=== PATIENT | male | born 1935 | race Two or more races ===

== ENCOUNTER 2018-10-02 16:26 | Emergency (ER) | payer OTHER ==
[~2018-10-02] VITALS: Ht 167.6 cm; Wt 90.7 kg
[2018-10-02 18:27] LABS: Basophils # (auto) 0 uL; Basophils % (auto) 0.4 % (0.0-2.0); Eosinophils # (auto) 0.1 uL; Eosinophils % (auto) 0.7 % (0.0-7.0); Lymphocytes # (auto) 0.7 uL; Lymphocytes % (auto) 5.7 % (10.0-50.0); Mean Corpuscular Hemoglobin 28.8 pg (28.0-32.0); Mean Corpuscular Hgb Conc. 33.4 g/dL (32.0-36.0); Mean Corpuscular Volume 86.4 fL (80.0-100.0); Monocytes # (auto) 0.9 uL; Monocytes % (auto) 6.6 % (0.0-12.0); Neutrophils # (auto) 11.2 uL; Neutrophils % (auto) 86.6 % (37.0-80.0); Platelet Count (auto) 192 10^3/uL (140-450); Red Blood Cells 4.16 10^6/uL (4.5-5.90); Red Cell Distribution Width 15.9 % (11.8-14.3); White Blood Cell 12.9 10^3/uL (4.4-10.8)
[2018-10-02 18:42] LABS: Albumin 3.3 g/dL (3.4-5.0); Anion Gap 8 (5-15); Aspartate Aminotransferase 20 U/L (15-37); Blood Urea Nitrogen 32 mg/dL (7-18); Calcium 9.1 mg/dL (8.5-10.1); Carbon Dioxide 27 mmol/L (21-32); Chloride 106 mmol/L (98-107); Glucose 161 mg/dL (74-106); Sodium 141 mmol/L (136-145)
[2018-10-02 18:47] LABS: Alanine Aminotransferase 24 U/L (16-61); Alkaline Phosphatase 74 U/L (45-117); BUN/Creatinine Ratio 25.4; Bilirubin, Total 0.7 mg/dL (0.2-1.0); GFR African American 71 mL/min; GFR Non-African American 58 mL/min; Total Protein 6.9 g/dL (6.4-8.2)
[2018-10-02] MEDS ORDERED: SODIUM CHLORIDE 0.9% 500 ML IV ONE (19:00)
[2018-10-02 19:50] LABS: INR 1.98 (0.9-1.15); Partial Thromboplastin Time 36.2 sec (23.78-33.04); Prothrombin Time 20.4 sec (9.27-12.13)
[2018-10-02] MEDS ORDERED: cefTRIAXone 1GM/50ML D5W 50 ML IV ONE (21:30)
[2018-10-02] MEDS ORDERED: SODIUM CHLORIDE 0.9% 2,700 ML IV ONE (22:00)
[2018-10-02 22:42] LABS: INR 2.22 (0.9-1.15); Partial Thromboplastin Time 38.7 sec (23.78-33.04); Prothrombin Time 22.7 sec (9.27-12.13)
[2018-10-02 23:51] LABS: Fibrinogen 515.9 mg/dL (177-375)
[2018-10-03 05:09] LABS: Urine Bacteria FEW /hpf (None Seen); Urine Blood Negative /uL (Negative); Urine Hyaline Cast MANY /lpf (0 - 2); Urine Mucus FEW (None Seen); Urine Specific Gravity 1.023 (1.001-1.035); Urine WBC 6 /hpf (0 - 3)
[2018-10-03 08:30] VITALS: BP 114/46
== END 2018-10-03 12:26 | disposition home or self-care (01) ==
LOC: ER 16:26
DX: E86.0 Dehydration (principal); I48.91 Unspecified atrial fibrillation; E11.9 Type 2 diabetes mellitus without complications; E78.5 Hyperlipidemia, unspecified; I10 Essential (primary) hypertension; Z86.73 Personal history of transient ischemic attack (TIA), and cerebral infarction without residual deficits
CPT/HCPCS: 36415; 36600; 71045; 80053; 81001; 82805; 83605; 83735; 83880; 84484; 85025; 85384; 85610; 85730; 87040; 93005; 94761; 96361; 96365; 99284; J0696; J7030

== ENCOUNTER 2018-11-29 12:56 | Emergency (ER) | payer OTHER ==
[~2018-11-29] VITALS: Ht 175.3 cm; Wt 81.6 kg
[2018-11-29 12:56] VITALS: BP 0/0
[2018-11-29] MEDS ORDERED: EPINEPHrine HCL 1 MG/10 ML SYRG IV ONE (12:59)
[2018-11-29] MEDS ORDERED: SODIUM BICARBONATE 8.4 % INJ 50ML VIAL IV ONE (12:59)
[2018-11-29] MEDS ORDERED: CALCIUM CHLOR(10%) 100MG/ML 10ML SYRINGE IV ONE (12:59)
[2018-11-29] MEDS ORDERED: SODIUM BICARBONATE 8.4% INJ 50ML SYRINGE ONE (13:03)
[2018-11-29] MEDS ORDERED: EPINEPHrine HCL 1 MG/10 ML SYRG ONE (13:03)
== END 2018-11-29 18:27 | disposition expired ==
LOC: EDBD 12:56 → EDUNIT# 12:58 → EDBD 12:58 → ER 12:58
DX: I46.9 Cardiac arrest, cause unspecified (principal)
CPT/HCPCS: 92950; 99285; J0171